=== PATIENT | male | born 1980 | race Caucasian/White ===

== ENCOUNTER 2017-11-27 16:08 | Emergency (ER) | payer OTHER ==
[~2017-11-27] VITALS: Ht 177.8 cm; Wt 86.2 kg
[2017-11-27 16:19] VITALS: BP 138/74
--- NOTE | 2017-11-27 16:32 | PHYS DOC ---
Past History Past Medical History: No Pertinent History Past Surgical History: No Surgical History Alcohol Use: Occasionally Adult General Chief Complaint Chief Complaint: tongue fissure HPI HPI 37-year-old male presenting today with tongue fissure. Been present for about one week. Mild discomfort with eating. No tongue swelling. No rashes. No fever. The discomfort is nonradiating intermittent and without alleviating factors. Review of systems is negative for chest pain shortness of breath fevers. All other review of systems is negative unless otherwise noted in history of present illness. ED course: 37-year-old male presenting with fissure tongue. Otherwise unremarkable exam. Patient discharged home to follow-up with his dentist. Patient comfortable plan. Review of Systems Review of Systems SEE ABOVE. Allergies Allergies Allergies Coded Allergies Type Severity Reaction Last Updated Verified No Known Drug Allergies 11/27/17 No Physical Exam Physical Exam SEE ABOVE Constitutional: Well developed, well nourished, no acute distress, non-toxic appearance. [] HENT: Normocephalic, atraumatic, bilateral external ears normal, oropharynx moist, no oral exudates, nose normal. no tongue swelling. small fissure present. Eyes: PERRLA, EOMI, conjunctiva normal, no discharge. [] Neck: Normal range of motion, no tenderness, supple, no stridor. [] Cardiovascular:Heart rate regular rhythm, no murmur [] Lungs & Thorax: Bilateral breath sounds clear to auscultation [] Abdomen: Bowel sounds normal, soft, no tenderness, no masses, no pulsatile masses. [] Skin: Warm, dry, no erythema, no rash. [] Back: No tenderness, no CVA tenderness. [] Extremities: No tenderness, no cyanosis, no clubbing, ROM intact, no edema. [] Neurologic: Alert and oriented X 3, normal motor function, normal sensory function, no focal deficits noted. [] Psychologic: Affect normal, judgement normal, mood normal. [] EKG EKG [] Radiology/Procedures Radiology/Procedures [] Course & Med Decision Making Course & Med Decision Making Pertinent Labs and Imaging studies reviewed. (See chart for details) [] Dragon Disclaimer Dragon Disclaimer This electronic medical record was generated, in whole or in part, using a voice recognition dictation system. Departure Departure: Impression: Primary Impression: Tongue, fissured Disposition: 01 HOME, SELF-CARE Condition: STABLE Referrals: PCP,UNKNOWN (PCP) Additional Instructions: Thank you for allowing us to participate in your care today. Followup with your dentist as needed for fissured tongue. Call your Primary Doctor tomorrow and inform them of your visit today. If you do not have a primary care provider you can ask for a list of our primary care providers. Return to the emergency department you have any new or concerning findings. This should be evaluated by the primary care physician and any necessary consulting services for continued management within a few days after discharge. Return to emergency room if you have any new or concerning symptoms including but not limited to fever, chills, nausea, vomiting, intractable pain, any new rashes, chest pain, shortness of air, uncontrolled bleeding, difficulty breathing, and/or vision loss. If at any time, you are having difficulty getting into your primary care doctor or a specialist, return to the emergency department. BRENTON MUNIZ MD November 27, 2017 16:32
== END 2017-11-27 16:39 | disposition home or self-care (01) ==
LOC: ER 16:08 → EDBD 16:08 → ER 16:39
DX: K14.5 Plicated tongue (principal)
CPT/HCPCS: 99281